=== PATIENT | male | born 1990 | race African-American/Black ===

== ENCOUNTER 2019-05-03 10:24 | Emergency (ER) | payer SELFPAY ==
--- NOTE | 2019-05-03 11:02 | RAD ---
Exam: XR Knee Lt 4 View STANDARD HISTORY: Left knee injury. Left knee pain. COMPARISON: None FINDINGS: There is a curvilinear increased density focus seen overlying the left lower extremity at the level o f the diaphysis of the proximal tibia and fibula only seen on lateral projection which is most likely artifactual as opposed to a radiopaque foreign body. There is overlying artifact at the level of the patella on the oblique view which is seen external to the skin on AP projection. No acute fracture, dislocation, or other acute osseous abnormality is identified. IMPRESSION: No acute osseous abnormality is identified.
[2019-05-03] MEDS ORDERED: Ketorolac Tromethamine 30 MG/ML VIAL ONE (11:45)
== END 2019-05-03 12:15 | disposition home or self-care (01) ==
LOC: ERS 10:24
DX: M25.552 Pain in left hip (principal); F17.210 Nicotine dependence, cigarettes, uncomplicated; F31.9 Bipolar disorder, unspecified; V43.62XA Car passenger injured in collision with other type car in traffic accident, initial encounter
CPT/HCPCS: 96372; J1885